=== PATIENT | male | born 2000 | race African-American/Black ===

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

== ENCOUNTER 2025-01-10 11:59 | Emergency (ER) | payer OTHER ==
[~2025-01-10] VITALS: Ht 175.3 cm; Wt 89.3 kg
--- NOTE | 2025-01-10 14:03 | ED.PDOC ---
History of Present Illness HPI Comments 24 y/o M presents with mother for c/c of flu-like symptoms. Patient reports on experiencing nausea, vomiting, fatigue, and lightheadedness over the past few days, lately. No endorsed known sick contacts, travel, or further pertinent events or history. He denies any medical or surgical history. Social history of marijuana use. He denies having any bloody or bilious vomitus, abdominal pain, diarrhea, fever, cough, or further acute symptoms. Chief Complaint: Flu like Time Seen by MD: 13:45 Reviewed Notes: Nurses Notes, Medications, Allergies Allergies: Coded Allergies: No Known Drug Allergy (Verified Allergy, Unknown, 01/10/25) Information Source: Patient Mode of Arrival: Ambulatory Severity: Moderate Timing: Days Duration: Since onset Prehospital treatment: None Past Medical History PAST MEDICAL HISTORY: Denies Surgical History: Denies all surgeries Family History Family History: Unknown Social History Smoker: Non-Smoker Alcohol: Denies ETOH Use Drugs: Denies Drug Use Lives In: Home All Other Systems: Reviewed and Negative (Comprehensive review of systems are negative unless stated in HPI) Physical Exam General Appearance: Moderate Distress HEENT: Normal ENT Inspection, Pharynx Normal, TMs Normal Neck: Full Range of Motion, Non-Tender, Normal, Normal Inspection Respiratory: Chest Non-Tender, Lungs Clear, No Accessory Muscle Use, No Respiratory Distress, Normal Breath Sounds Cardiovascular: No Edema, No JVD, No Murmur, No Gallop, Normal Peripheral Pulses, Regular Rate/Rhythm Breast Exam: Deferred Gastrointestinal: No Organomegaly, Non Tender, No Pulsatile Mass, Normal Bowel Sounds, Soft Genitalia: Deferred Pelvic: Deferred Rectal: Deferred Extremities: No calf tenderness, Normal capillary refill, Normal inspection, Normal range of motion, Non-tender, No pedal edema Musculoskeletal : Apperance: Normal Neurologic: Alert, recreational counselor II-XII nml as Tested, No Motor Deficits, Normal Affect, Normal Mood, No Sensory Deficits Cerebellar Function: Normal Reflexes: Normal Skin: Dry, Normal Color, Warm Peripheral Pulses: 3+ Radial (R), 3+ Radial (L) Lymphatic: No Adenopathy Was a procedure done? Was a procedure done?: No Differential Dx Considerations may include: viral, URI, among others X-Ray, Labs, Meds, VS Vital Signs Date Time Temp Pulse Resp B/P (MAP) Pulse Ox O2 Delivery O2 Flow Rate FiO2 01/10/25 12:02 97.6 61 14 134/87 100 97.6 Patient alert. Complaining of generalized body aches. Vitals stable. Answering questions. Saturation pristine on room air. Possible pneumonitis. Was given prescription of amoxicillin antibiotic. No leg swelling. Explained to the patient. Was told to follow up with his primary care physician. Was told to come back if there is any problem. Time of 1ST Reevaluation: 14:15 Reevaluation 1ST: Unchanged Patient Education/Counseling: Diagnosis, Treatment, Need For Follow Up Family Education/Counseling: Diagnosis, Treatment, Need For Follow Up, No Family Present SEPSIS Sepsis Screen Date sepsis recognized/suspect: Jan 10, 2025 Time Sepsis recognized/suspect: 1203 Recent Procedure: No On Antibiotic Therapy: No Respiratory Rate >20: No Heart Rate >90: No Temp<36 C (96.8 F) or >38.3 C: No SBP <90 or MAP <65 mmHG: No New Acute Mental Status Change: No Is the patient on CPAP, BIPAP,: No Physician Orders Chest Portable (01/10/25 13:50) Vital Signs Date Time Temp Pulse Resp B/P (MAP) Pulse Ox O2 Delivery O2 Flow Rate FiO2 01/10/25 12:02 97.6 61 14 134/87 100 97.6 Departure 1 Departure Time of Disposition: 16:07 Impression: Primary Impression: Pneumonitis Disposition: 01 HOME / SELF CARE / HOMELESS Condition: Good e-Prescriptions Amoxicillin Trihydrate (Amoxicillin) 500 Mg Tab 1 TAB PO TID for 7 Days, #21 TAB Prov: DEVIN PATEL MD 01/10/25 Discharged With: Self Critical Care Note Critical Care Time?: No Stability Stability form required: No Heart Score Heart Score: Heart Score Response (Comments) Value History N/A 0 EKG N/A 0 Age N/A 0 Risk Factors N/A 0 Troponin N/A 0 Total 0 I personally scribed for DEVIN PATEL MD ([email or web address]) on 01/10/25 at 14:03. Electronically submitted by Andrew Augustin ([email or web address]). I personally scribed for DEVIN PATEL MD ([email or web address]) on 01/10/25 at 14:08. Electronically submitted by Andrew Augustin ([email or web address]). DEVIN PATEL MD Jan 10, 2025 14:03
--- NOTE | 2025-01-10 14:22 | DVH ---
CHEST RADIOGRAPH Indication: sob Technique: Single frontal view of the chest was obtained. Comparison: None Findings: No focal consolidation. No significant pleural effusion. No pneumothorax. Nonenlarged cardiomediastinal silhouette. IMPRESSION: No acute pulmonary process.
[2025-01-10] MEDS ORDERED: AMOX500T3 PO (16:08)
[2025-01-10 17:09] VITALS: BP 122/67; PULSE 74; RESP 20; TEMP 98; O2SAT 98
== END 2025-01-10 17:15 | disposition home or self-care (01) ==
LOC: ER 11:59
DX: J18.9 Pneumonia, unspecified organism (principal); F12.90 Cannabis use, unspecified, uncomplicated
CPT/HCPCS: 71045